=== PATIENT | male | born 2000 | race Hispanic/Latino ===

== ENCOUNTER 2019-08-29 08:42 | Emergency (ER) | payer OTHER, SELFPAY ==
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
== END 2019-08-29 11:39 | disposition home or self-care (01) ==
LOC: ERS 08:42
DX: S00.33XA Contusion of nose, initial encounter (principal); F17.200 Nicotine dependence, unspecified, uncomplicated; V89.2XXA Person injured in unspecified motor-vehicle accident, traffic, initial encounter
CPT/HCPCS: 70450; 72125; L0120